=== PATIENT | female | born 1960 | race Caucasian/White ===

== ENCOUNTER 2024-10-26 19:02 | Emergency (ER) | payer MEDICAID ==
[~2024-10-26] VITALS: Ht 157.5 cm; Wt 59.0 kg
[2024-10-26 19:17] VITALS: O2SAT 99
[2024-10-26 19:27] VITALS: TEMP 36.9; O2SAT 99
[2024-10-26 20:03] LABS: BASOPHILS % 0.4 % (0.0-2.0); CARBON DIOXIDE 30 mEq/L (21-32); CHLORIDE 107 mEq/L (98-107); EOSINOPHILS % 1.1 % (0.0-5.0); HEMATOCRIT. 41.2 % (36.0-48.0); HEMOGLOBIN. 13.4 g/dL (12.0-16.0); LYMPHOCYTES % 26.8 % (20.0-50.0); MEAN CORPUSCULAR HEMOGLOBIN 29.3 pg (28.0-32.0); MEAN CORPUSCULAR HGB CONC 32.4 g/dL (31.0-37.0); MEAN CORPUSCULAR VOLUME 90.3 fL (81.0-99.0); MEAN PLATELET VOLUME 8.3 fl (7.4-10.4); MONOCYTES % 9.4 % (2.0-8.0); NEUTROPHILS % 62.3 % (40.0-76.0); PLATELET 255 x1000/uL (130-400); POTASSIUM 3.9 mEq/L (3.5-5.1); RED BLOOD CELL COUNT 4.56 mill/uL (4.2-5.4); RED CELL DISTRIBUTION WIDTH 14.2 % (11.6-14.6); SODIUM 143 mEq/L (136-145); WHITE BLOOD COUNT 7.5 x1000/uL (4.5-11.0)
[2024-10-26 20:04] LABS: CALCIUM 10.1 mg/dL (8.7-10.4)
[2024-10-26 20:08] LABS: CREATININE 0.8 mg/dL (0.6-1.0); GLUCOSE 77 mg/dL (70-105)
[2024-10-26 20:09] LABS: UREA NITROGEN BLOOD 10 mg/dL (9-23)
[2024-10-26 20:10] LABS: ALANINE AMINOTRANSFERASE 18 IU/L (10-49); ALBUMIN 4.3 g/dL (3.2-4.8); ASPARTATE AMINOTRANSFERASE 23 IU/L (<34)
[2024-10-26 20:11] LABS: BILIRUBIN TOTAL 0.5 mg/dL (0.1-1.0); PROTEIN TOTAL 7.4 g/dL (6.0-8.3)
[2024-10-26 21:37] LABS: CLARITY URINE CLEAR (CLEAR); COLOR URINE YELLOW (YELLOW); GLUCOSE URINE NEGATIVE (NEGATIVE); KETONES URINE TRACE (NEGATIVE); LEUKOCYTE ESTERASE URINE 2+ (NEGATIVE); NITRITE URINE NEGATIVE (NEGATIVE); OCCULT BLOOD URINE NEGATIVE (NEGATIVE); PH URINE 7.5 (4.5-8.0); PROTEIN URINE NEGATIVE (NEGATIVE); SPECIFIC GRAVITY URINE 1.021 (1.005-1.030)
[2024-10-26 21:54] LABS: BACTERIA URINE NONE SEEN; RBC URINE NONE SEEN /hpf (0-2); SQUAMOUS EPITHELIAL CELL URINE FEW /lpf (RARE/1+)
[2024-10-26] MEDS ORDERED: ASPI1TAB8 PO (22:46)
[2024-10-26] MEDS: METOCLOPRAMIDE HCL 10MG TABLET PO ONE (23:23)
[2024-10-26] MEDS: DIPHENHYDRAMINE 25MG CAPSULE PO ONE (23:24)
[2024-10-26] MEDS: KETOROLAC 30MG/ML VIAL IM ONE (23:26)
[2024-10-26 23:31] VITALS: BP 136/70; PULSE 58; RESP 16
== END 2024-10-26 23:35 | disposition home or self-care (01) ==
LOC: ER 19:02
DX: G43.909 Migraine, unspecified, not intractable, without status migrainosus (principal); Z79.82 Long term (current) use of aspirin
CPT/HCPCS: 99283; 80053; 81003; 83690; 85025; 36415; J1885; Q0163; J8597